=== PATIENT | male | born 1990 | race African-American/Black ===

== ENCOUNTER 2017-09-16 08:56 | Emergency (ER) | payer SELFPAY ==
[2017-09-16 10:07] LABS: Bilirubin Small (Negative); Blood, Urine Negative (Negative); Clarity CLEAR (Clear); Glucose, Urine (Dipstick) Negative (Negative); Leukocyte Negative (Negative); Nitrite Negative (Negative); Protein, Urine (Dipstick) Trace mg/dL (Neg-Trace); Urobilinogen 0.2 mg/dL (0.2-1.0); pH, Urine 6.5 (5.0-9.0)
[2017-09-17 05:45] LABS: Chlamydia by PCR Not Detected (NotDetected); GC by PCR Not Detected (NotDetected)
== END 2017-09-16 10:38 | disposition home or self-care (01) ==
LOC: ERS 08:56
DX: K52.9 Noninfective gastroenteritis and colitis, unspecified (principal); J45.909 Unspecified asthma, uncomplicated
CPT/HCPCS: 81003; 87491; 87591; 99284

== ENCOUNTER 2017-11-12 16:59 | Emergency (ER) | payer SELFPAY ==
[2017-11-12] MEDS ORDERED: Ondansetron ODT 4 MG TAB ONE (17:31)
[2017-11-12 17:36] LABS: #Monocytes 0.7 thou/uL (0.11-0.59); #Neutrophils 12.8 thou/uL (1.40-6.50); %Basophils 0.2 % (0.0-1.0); %Eosinophils 0.2 % (0.0-10.0); %Lymphocytes 6.6 % (21.0-51.0); %Monocytes 4.9 % (0.0-10.0); %Neutrophils 88.1 % (42.0-75.0); Mean Corpuscular HGB CONC 32.7 g/dL (32.0-36.0); Mean Corpuscular Hemoglobin 27.4 pg (27.0-31.0); Mean Corpuscular Volume 83.7 fL (78.0-98.0); Mean Platelet Volume 7.2 fL (7.4-10.4); Platelet Count 235 thou/uL (130-400); RBC Distribution Width 12.6 % (11.5-14.5); Red Blood Cell (RBC) Count 5.49 mill/uL (4.70-6.10); White Blood Cell (WBC) Count 14.6 thou/uL (4.8-10.8)
[2017-11-12 18:01] LABS: ALT (SGPT) 21 U/L (8-55); AST (SGOT) 28 U/L (5-34); Albumin 4.6 g/dL (3.5-5.0); Alkaline Phosphatase 54 U/L (40-150); Anion Gap 14 mmol/L (10-20); BUN (Urea Nitrogen) 9 mg/dL (8.9-20.6); Calc. Creatinine Clearance 0 mL/min (70-130); Calcium 9.7 mg/dL (7.8-10.44); Carbon Dioxide 23 mmol/L (22-29); Chloride 104 mmol/L (98-107); Estimated GFR-MDRD Greater than 90; Globulin 3.1 g/dL (2.4-3.5); Glucose 87 mg/dL (70-105); Lipase 10 U/L (8-78); Protein, Total 7.7 g/dL (6.0-8.3); Sodium 137 mmol/L (136-145)
== END 2017-11-12 19:35 | disposition home or self-care (01) ==
LOC: ERS 16:59
DX: R11.2 Nausea with vomiting, unspecified (principal); F17.210 Nicotine dependence, cigarettes, uncomplicated; J45.909 Unspecified asthma, uncomplicated
CPT/HCPCS: 36415; 80053; 83690; 85025; 99284; Q0162

== ENCOUNTER 2018-05-29 08:17 | Emergency (ER) | payer SELFPAY ==
[2018-05-29] MEDS ORDERED: Adacel (T-DAP) 0.5 ML SYRINGE ONE (08:37)
== END 2018-05-29 09:04 | disposition home or self-care (01) ==
LOC: ERS 08:17
DX: S61.211A Laceration without foreign body of left index finger without damage to nail, initial encounter (principal); J45.909 Unspecified asthma, uncomplicated; F17.210 Nicotine dependence, cigarettes, uncomplicated; W26.8XXA Contact with other sharp object(s), not elsewhere classified, initial encounter
CPT/HCPCS: 12001; 90471; 90715

== ENCOUNTER 2020-02-02 07:36 | Emergency (ER) | payer SELFPAY ==
[2020-02-02] MEDS ORDERED: Ketorolac Tromethamine 30 MG/ML VIAL ONE (08:22)
--- NOTE | 2020-02-02 11:09 | RAD ---
LEFT THUMB 3 VIEWS: Date: 02/02/2020 HISTORY: Pain. COMPARISON: None. FINDINGS: No acute fracture or malalignment. Likely extrinsic linear density along the lateral margin interphal angeal joint seen in the AP radiograph. IMPRESSION: No acute osseous abnormality. If clinically warranted, MRI of thumb recommended. POS: [facility]
== END 2020-02-02 09:28 | disposition home or self-care (01) ==
LOC: ERS 07:36
DX: S63.602A Unspecified sprain of left thumb, initial encounter (principal); J45.909 Unspecified asthma, uncomplicated; F17.210 Nicotine dependence, cigarettes, uncomplicated
CPT/HCPCS: 29125; 96372; J1885

== ENCOUNTER 2020-12-04 21:18 | Emergency (ER) | payer SELFPAY ==
[2020-12-04] MEDS ORDERED: Boostrix 0.5 ML (Tdap) VIAL ONE (22:10)
[2020-12-05 11:53] LABS: SARS-CoV-2 PCR by NAA Not Detected (NotDetected)
== END 2020-12-04 22:20 | disposition home or self-care (01) ==
LOC: ERS 21:18
DX: S00.01XA Abrasion of scalp, initial encounter (principal); R05.9 Cough, unspecified; Z20.822 Contact with and (suspected) exposure to COVID-19; F17.210 Nicotine dependence, cigarettes, uncomplicated; X58.XXXA Exposure to other specified factors, initial encounter
CPT/HCPCS: 90471; 90715; U0003; U0005

== ENCOUNTER 2023-02-10 21:19 | Emergency (ER) | payer BC, SELFPAY ==
[2023-02-10] MEDS ORDERED: Ketorolac Tromethamine 30 MG (1 mL) VIAL ONE (21:51)
[2023-02-10 22:19] LABS: SARS-CoV-2 NAA Rapid Test Not Detected (NotDetected)
== END 2023-02-10 22:51 | disposition home or self-care (01) ==
LOC: ERS 21:19
DX: M79.672 Pain in left foot (principal); J06.9 Acute upper respiratory infection, unspecified; F17.210 Nicotine dependence, cigarettes, uncomplicated
CPT/HCPCS: 96372; J1885

== ENCOUNTER 2023-04-08 11:01 | Outpatient (CLI) | payer BC | END 2023-04-08 11:02 | disposition home or self-care (01) | LOC: BICRAD 11:01 | PROVIDERS: ATTEND Student in an Organized Health Care Education/Training Program | DX: S93.402A Sprain of unspecified ligament of left ankle, initial encounter (principal); M85.872 Other specified disorders of bone density and structure, left ankle and foot; G90.522 Complex regional pain syndrome I of left lower limb; M79.89 Other specified soft tissue disorders ==

== ENCOUNTER → 2023-11-24 | Day surgery (SDC) | payer BC | LOC: MRI 12:00 | PROVIDERS: ATTEND Student in an Organized Health Care Education/Training Program | DX: S93.402D Sprain of unspecified ligament of left ankle, subsequent encounter (principal); M21.071 Valgus deformity, not elsewhere classified, right ankle; M13.871 Other specified arthritis, right ankle and foot; M76.821 Posterior tibial tendinitis, right leg; X58.XXXA Exposure to other specified factors, initial encounter ==